=== PATIENT | female | born 1940 | race Caucasian/White ===

== ENCOUNTER 2021-10-04 14:12 | Inpatient (IN) | payer MEDICARE, OTHER ==
[~2021-10-04] VITALS: Ht 165.1 cm; Wt 59.0 kg
[2021-10-04] MEDS ORDERED: IV NORMAL SALINE 1000 ML BAG IV ONE (14:30)
[2021-10-04] MEDS ORDERED: DOCU-141 GT (14:32)
[2021-10-04] MEDS ORDERED: ASCO500C18 GT (14:32)
[2021-10-04] MEDS ORDERED: HYDR-4209 GT (14:32)
[2021-10-04] MEDS ORDERED: COLL30OI TOP (14:32)
[2021-10-04] MEDS ORDERED: LEVE500T20 GT (14:32)
[2021-10-04] MEDS ORDERED: LEVO200T9 GT (14:32)
[2021-10-04] MEDS ORDERED: MULT-594 GT (14:32)
[2021-10-04] MEDS ORDERED: SENN-18 GT (14:32)
[2021-10-04] MEDS ORDERED: FERR325T28 GT (14:32)
[2021-10-04] MEDS ORDERED: MAGN400O6 GT (14:32)
[2021-10-04] MEDS ORDERED: ACET325C7 GT (14:32)
[2021-10-04] MEDS ORDERED: DIATR MEGLU/DIATRIZOATE SODIUM 30 ML BOTTLE GT ONE (14:45)
[2021-10-04] MEDS ORDERED: DIATR MEGLU/DIATRIZOATE SODIUM 30 ML BOTTLE ONE (14:47)
--- NOTE | 2021-10-04 14:49 | NUR ---
PT IS IN ROOM #2B. DR GIBBONS EVALUATED THE PT.
[2021-10-04 14:58] LABS: CARBON DIOXIDE 24 mmol/L (21-32); CHLORIDE 125 mmol/L (98-107); CREATININE 2.3 mg/dL (0.6-1.3); GLUCOSE 129 mg/dL (74-106); POTASSIUM 3.9 mmol/L (3.5-5.1)
[2021-10-04 15:00] LABS: UREA NITROGEN, BLOOD 125 mg/dL (7-18)
[2021-10-04 15:04] LABS: ALANINE AMINOTRANSFERASE 141 U/L (14-59); ALKALINE PHOSPHATASE 105 U/L (50-136); ASPARTATE AMINOTRANSFERASE 64 U/L (15-37); BILIRUBIN,DIRECT 0.1 mg/dL (0.0-0.2); BILIRUBIN,TOTAL 0.4 mg/dL (0.2-1.0); LIPASE 737 U/L (73-393); TOTAL PROTEIN, SERUM 8.5 g/dL (6.4-8.2)
[2021-10-04 15:45] LABS: HEMATOCRIT 36.8 % (31.2-41.9); MEAN CORPUSCULAR HEMOGLOBIN 26.1 uug (24.7-32.8); MEAN CORPUSCULAR VOLUME 87.3 fL (75.5-95.3); PLATELET COUNT (AUTO) 207 K/uL (179-408)
--- NOTE | 2021-10-04 16:06 | NUR ---
REPORT WAS GIVEN TO INTEGRATION DIRECTOR. PT WAS TRANSFERED TO ROOM #314.
[2021-10-04] MEDS ORDERED: IV NORMAL SALINE 500 ML IV ONE (16:30)
[2021-10-04] MEDS ORDERED: REMEDY ESSENTIAL ZINC PASTE 113 GM TP PRN (16:30)
[2021-10-04 16:31] VITALS: BP 124/67
--- NOTE | 2021-10-04 16:45 | NUR ---
patient admitted to telemetry, patient is awake nonverbal. Patient with eyes open. respirations even and non-labored 95% on r.a. gt in place and patent, s/p gt replacement in ER, stoma noted with redness. Colostomy noted to left side of abd, stoma appears pink. bowel sounds present in all 4 quadrant, abdomen soft and non-tender. patient is incontinent and uses diaper, no episode of urination at this time. patient is total care patient, bed bound, bilateral lower extremity are contracted. Upon assessment patient with no facial grimacing of pain or discomfort. on body assessment patient is noted with left breast mass with some purple/red discolorations, redness to gt stoma site, old healed scab to right hip, scratches to left knee, right second toe wound and missing right big toe. patient cleaned and repositioned at this time. side rails up x2 bilateral, call light within reach, unable to orient to room due to cognitive impairment.
[2021-10-04 17:21] LABS: BAND % (MANUAL) 3 % (0-10); EOSINOPHILS % (MANUAL) 3 % (0-8); LYMPHOCYTES % (MANUAL) 26 % (20-40); MONOCYTES % (MANUAL) 8 % (2-10); NEUTROPHILS % (MANUAL) 60 % (42-75)
[2021-10-04] MEDS: NEPRO 1000 ML GT PRN (18:14)
[2021-10-04] MEDS: IV D5W 1000ML 1,000 ML IV PRN (18:14)
[2021-10-04] MEDS: DOCUSATE SODIUM 100 MG/10 ML LIQUID UDC GT SCH (20:04)
[2021-10-04] MEDS: HEPARIN SODIUM,PORCINE 5,000 UNITS/ML VIAL SQ SCH (20:07)
[2021-10-04 20:13] VITALS: BP 150/76
[2021-10-05 01:23] VITALS: BP 116/58
[2021-10-05 04:31] VITALS: BP 134/62
--- NOTE | 2021-10-05 06:09 | NUR ---
Pt slept intermittently. Alert to self. No distress noted. IV site intact. GT intact, no residual. Safety precautions in place. Will endorse to day shift.
[2021-10-05 06:43] LABS: HEMATOCRIT 30.2 % (31.2-41.9); MEAN CORPUSCULAR HEMOGLOBIN 26.8 uug (24.7-32.8); MEAN CORPUSCULAR VOLUME 85.8 fL (75.5-95.3); PLATELET COUNT (AUTO) 161 K/uL (179-408)
[2021-10-05] MEDS: IV D5W 1000ML 1,000 ML IV PRN ×2 (06:56→20:10)
[2021-10-05] MEDS: LEVOTHYROXINE SODIUM 100 MCG TABLET PO SCH (07:27)
[2021-10-05] MEDS: LEVOTHYROXINE SODIUM 125 MCG TABLET PO SCH (07:27)
[2021-10-05 07:39] LABS: ALANINE AMINOTRANSFERASE 113 U/L (14-59); ALKALINE PHOSPHATASE 94 U/L (50-136); ASPARTATE AMINOTRANSFERASE 48 U/L (15-37); BILIRUBIN,TOTAL 0.3 mg/dL (0.2-1.0); CARBON DIOXIDE 26 mmol/L (21-32); CREATININE 2.1 mg/dL (0.6-1.3); GLUCOSE 147 mg/dL (74-106); LIPASE 751 U/L (73-393); MAGNESIUM 2.8 mg/dL (1.8-2.4); PHOSPHOROUS 3.9 mg/dL (2.5-4.9); POTASSIUM 3.7 mmol/L (3.5-5.1); TOTAL PROTEIN, SERUM 7.4 g/dL (6.4-8.2)
[2021-10-05 07:40] LABS: THYROID STIMULATING HORMONE 5.672 mIU/mL (0.358-3.740)
[2021-10-05 08:19] LABS: CHLORIDE 126 mmol/L (98-107)
[2021-10-05 08:21] LABS: UREA NITROGEN, BLOOD 117 mg/dL (7-18)
--- NOTE | 2021-10-05 08:39 | NUR ---
Critical Lab Values: Sodium: 162, BUN: 117. Claude Flynn NP notified.
[2021-10-05] MEDS: DOCUSATE SODIUM 100 MG/10 ML LIQUID UDC GT SCH ×2 (08:47→20:10)
[2021-10-05] MEDS: ASCORBIC ACID 500 MG TABLET GT SCH (08:47)
[2021-10-05] MEDS: FERROUS SULFATE 300 MG/5 ML LIQUID UDC GT SCH (08:47)
[2021-10-05] MEDS: PANTOPRAZOLE ORAL SUSPENSION 40 MG SUSPDR.PKT GT SCH (08:47)
[2021-10-05] MEDS: SENNOSIDES 1 TABLET GT SCH (08:48)
[2021-10-05] MEDS: MULTIVITAMINS,THERAPEUTIC TABLET GT SCH (08:48)
[2021-10-05] MEDS: levETIRAcetam 500 MG TABLET GT SCH ×2 (08:48→16:04)
[2021-10-05] MEDS: THERAHONEY GEL 1.5 OZ TUBE TOP SCH (08:49)
[2021-10-05] MEDS: HEPARIN SODIUM,PORCINE 5,000 UNITS/ML VIAL SQ SCH ×2 (08:57→20:11)
[2021-10-05] MEDS ORDERED: LEVOTHYROXINE SODIUM 200 MCG TABLET GT SCH (09:00)
[2021-10-05] MEDS ORDERED: Medication Not On Formulary EA (Ascorbic Acid (Vitamin C) 500 MG) GT SCH (09:00)
[2021-10-05] MEDS ORDERED: Medication Not On Formulary EA (Multivitamins (Multivitamin) 1 EACH) GT SCH (09:00)
[2021-10-05] MEDS ORDERED: COLLAGENASE OINT 30 GM TUBE TOP SCH (09:00)
--- NOTE | 2021-10-05 09:09 | NUR ---
Patient seen by PT and states patient needs total assistance.
--- NOTE | 2021-10-05 10:55 | NUR ---
G-Tube feeding resumed at 1030. Next scheduled stop to feeding at 0630 10/06/2021. Will endorse information to PM nurse.
--- NOTE | 2021-10-05 11:17 | NUR ---
WOUND CARE CONSULT: PT PRESENTS WITH SCARRING TO RT HIP, SACRUM, RT ANKLE AND OPEN AREAS TO RT 2ND AND 3RD TOES, PRESENT ON ADMISSION. DPM CONSULT CALLED TO DR OAKLEY. PT NOTED TO HAVE LARGE LESION TO LEFT BREAST, NO DRAINAGE NOTED. RECOMMENDATIONS MADE FOR SKIN PROTECTION. DISCUSSED WITH NURSING STAFF. PT IS INCONTINENT AND NOTED TO HAVE LOWER EXTREMITY CONTRACTURES. MD IN AGREEMENT WITH PLAN OF CARE. Addendum: 10/05/21 at 1121 by LYDIA ZURITA RN COLOSTOMY ALSO NOTED WITH SMALL AMOUNT OF HARD STOOL.
[2021-10-05 11:59] VITALS: BP 106/52
--- NOTE | 2021-10-05 16:18 | NUR ---
Patient's BP dropped to 97/50. Claude Flynn RELIGIOUS EDUCATION TEACHER notified.
[2021-10-05 16:24] VITALS: BP 96/50
[2021-10-05 20:20] VITALS: BP 123/63
[2021-10-05] MEDS: HYDROCODONE/APAP 5-325MG TABLET GT PRN (23:43)
[2021-10-06] MEDS: NEPRO 1000 ML GT PRN (03:18)
[2021-10-06 04:47] VITALS: BP 123/74
--- NOTE | 2021-10-06 05:57 | NUR ---
Pt slept throughout the night. Purewick in place. IV site intact. GT intact. Safety protocols kept in place, will endorse to day shift.
[2021-10-06] MEDS: LEVOTHYROXINE SODIUM 125 MCG TABLET PO SCH (06:32)
[2021-10-06] MEDS: LEVOTHYROXINE SODIUM 100 MCG TABLET PO SCH (06:32)
[2021-10-06 07:15] LABS: HEMATOCRIT 27.3 % (31.2-41.9); MEAN CORPUSCULAR HEMOGLOBIN 26.5 uug (24.7-32.8); MEAN CORPUSCULAR VOLUME 86.7 fL (75.5-95.3); PLATELET COUNT (AUTO) 135 K/uL (179-408)
[2021-10-06 07:36] LABS: ALANINE AMINOTRANSFERASE 73 U/L (14-59); ALKALINE PHOSPHATASE 89 U/L (50-136); ASPARTATE AMINOTRANSFERASE 53 U/L (15-37); BILIRUBIN,DIRECT 0.1 mg/dL (0.0-0.2); BILIRUBIN,TOTAL 0.2 mg/dL (0.2-1.0); CARBON DIOXIDE 25 mmol/L (21-32); CHLORIDE 119 mmol/L (98-107); CHOLESTEROL 130 mg/dL (<200); CREATININE 1.9 mg/dL (0.6-1.3); GLUCOSE 140 mg/dL (74-106); HDL CHOLESTEROL 33 mg/dL (40-60); MAGNESIUM 2.6 mg/dL (1.8-2.4); PHOSPHOROUS 3.2 mg/dL (2.5-4.9); POTASSIUM 3.4 mmol/L (3.5-5.1); TOTAL PROTEIN, SERUM 6.8 g/dL (6.4-8.2); TRIGLYCERIDES 243 MG/DL (30-150)
[2021-10-06 07:48] LABS: *BILIRUBIN,URIN NEGATIVE (NEGATIVE); *BLOOD, URINE 1+ (NEGATIVE); *CLARITY,URINE CLEAR (CLEAR); *COLOR,URINE YELLOW (YELLOW); *KETONES,URINE NEGATIVE (NEGATIVE); *UROBILINOGEN,URINE 0.2 E.U./dl (NORMAL); LEUKOCYTE ESTERASE ,URINE TRACE (NEGATIVE); NITRITE, URINE POSITIVE (NEGATIVE); UGLUCOSE NEGATIVE (NEGATIVE)
[2021-10-06 08:08] LABS: UREA NITROGEN, BLOOD 90 mg/dL (7-18)
[2021-10-06] MEDS: DOCUSATE SODIUM 100 MG/10 ML LIQUID UDC GT SCH ×2 (08:40→20:55)
[2021-10-06] MEDS: PANTOPRAZOLE ORAL SUSPENSION 40 MG SUSPDR.PKT GT SCH (08:40)
[2021-10-06] MEDS: MULTIVITAMINS,THERAPEUTIC TABLET GT SCH (08:40)
[2021-10-06] MEDS: ASCORBIC ACID 500 MG TABLET GT SCH (08:40)
[2021-10-06] MEDS: SENNOSIDES 1 TABLET GT SCH (08:40)
[2021-10-06] MEDS: FERROUS SULFATE 300 MG/5 ML LIQUID UDC GT SCH (08:40)
[2021-10-06] MEDS: levETIRAcetam 500 MG TABLET GT SCH ×2 (08:40→16:37)
[2021-10-06] MEDS: THERAHONEY GEL 1.5 OZ TUBE TOP SCH (08:41)
[2021-10-06] MEDS: HEPARIN SODIUM,PORCINE 5,000 UNITS/ML VIAL SQ SCH ×2 (08:51→21:05)
[2021-10-06] MEDS: IV D5W 1000ML 1,000 ML IV PRN (09:23)
[2021-10-06] MEDS ORDERED: POTASSIUM CHLORIDE 20 MEQ POWDER PACKET GT ONE (10:00)
[2021-10-06] MEDS ORDERED: CEFTRIAXONE 1 G in IV DEXTROSE 5% 50 ML IV SCH (10:00)
--- NOTE | 2021-10-06 10:12 | NUR ---
G-Tube feeding resumed at 1000. Will endorse to PM nurse to end feeding at 0600 10/07/21
[2021-10-06 11:07] VITALS: BP 144/70
[2021-10-06 12:38] LABS: BACTERIA,URINE FEW /HPF (NONE SEEN); SQUAMOUS EPITHELIAL CELL,UR FEW /HPF (NONE SEEN); WBC,URINE 0-3 /HPF (0-3)
[2021-10-06] MEDS: ACETAMINOPHEN 650 MG/20.3 ML LIQUID UDC GT PRN ×2 (14:27→21:04)
--- NOTE | 2021-10-06 14:48 | NUR ---
Spoke to Claude Flynn NP regarding patient's colostomy bag. Hardened stool around stoma site. Attempted to maneuver and move hardened stool. Miralax ordered per Claude Flynn NP.
--- NOTE | 2021-10-06 14:50 | NUR ---
Also notified Claude Flynn NP about patient's facing becoming red. No fever noted. Patient in no distress or discomfort. Will continue to monitor patient.
[2021-10-06] MEDS ORDERED: MIRALAX 17 GM POWD.PACK PO ONE (15:00)
[2021-10-06 15:20] VITALS: BP 130/60
[2021-10-06] MEDS: NYSTATIN SUSPENSION 5 ML LIQUID UDC PO SCH ×2 (16:37→20:55)
--- NOTE | 2021-10-06 18:31 | NUR ---
Patient received care well today. Colostomy bag changed. G-tube dressing changed. IV site patent and intact. Bed left in lowest position with call light within reach. Patient's feeding scheduled to stop at 0600 10/07/21. Will endorse information to PM nurse. Comfort measures provided.
[2021-10-06 20:12] VITALS: BP 110/59
--- NOTE | 2021-10-06 21:24 | NUR ---
Patient asleep but arousable, hob elevated, no sob no chest pain noted, patient GTF held at this time, residual of 200cc, with greenish color residual, denies pain at this time, colostomy bag with medium brown color feces, turned and reposition, continue to monitor.
--- NOTE | 2021-10-07 00:02 | NUR ---
Patient face, hands and body has redness, and noted patient itching, notify Claude Flynn, with order.
[2021-10-07] MEDS ORDERED: diphenhydrAMINE 50 MG/1 ML VIAL IV PRN (00:15)
[2021-10-07] MEDS ORDERED: methylPREDNISolone SOD SUCC 125 MG/2 ML VIAL IV ONE (00:15)
[2021-10-07 04:15] VITALS: BP 118/40
[2021-10-07] MEDS: LEVOTHYROXINE SODIUM 100 MCG TABLET PO SCH (07:00)
[2021-10-07] MEDS: LEVOTHYROXINE SODIUM 125 MCG TABLET PO SCH (07:01)
[2021-10-07 07:02] LABS: HEMATOCRIT 27.6 % (31.2-41.9); MEAN CORPUSCULAR HEMOGLOBIN 26.5 uug (24.7-32.8); MEAN CORPUSCULAR VOLUME 85.8 fL (75.5-95.3); PLATELET COUNT (AUTO) 134 K/uL (179-408)
[2021-10-07 07:19] LABS: CARBON DIOXIDE 23 mmol/L (21-32); CHLORIDE 112 mmol/L (98-107); CREATININE 1.9 mg/dL (0.6-1.3); GLUCOSE 209 mg/dL (74-106); POTASSIUM 4.6 mmol/L (3.5-5.1); UREA NITROGEN, BLOOD 78 mg/dL (7-18)
[2021-10-07 07:26] LABS: MAGNESIUM 2.4 mg/dL (1.8-2.4); PHOSPHOROUS 3.5 mg/dL (2.5-4.9)
[2021-10-07] MEDS: NYSTATIN SUSPENSION 5 ML LIQUID UDC PO SCH ×4 (08:48→20:48)
[2021-10-07] MEDS: FERROUS SULFATE 300 MG/5 ML LIQUID UDC GT SCH (08:48)
[2021-10-07] MEDS: ASCORBIC ACID 500 MG TABLET GT SCH (08:48)
[2021-10-07] MEDS: MULTIVITAMINS,THERAPEUTIC TABLET GT SCH (08:48)
[2021-10-07] MEDS: SENNOSIDES 1 TABLET GT SCH (08:48)
[2021-10-07] MEDS: DOCUSATE SODIUM 100 MG/10 ML LIQUID UDC GT SCH ×2 (08:48→20:48)
[2021-10-07] MEDS: levETIRAcetam 500 MG TABLET GT SCH ×2 (08:48→16:53)
[2021-10-07] MEDS: PANTOPRAZOLE ORAL SUSPENSION 40 MG SUSPDR.PKT GT SCH (08:48)
[2021-10-07] MEDS: THERAHONEY GEL 1.5 OZ TUBE TOP SCH (08:49)
[2021-10-07] MEDS: HEPARIN SODIUM,PORCINE 5,000 UNITS/ML VIAL SQ SCH ×2 (08:59→20:48)
--- NOTE | 2021-10-07 10:30 | NUR ---
PATIENT NOTED TO BE AWAKE AND RESPONDING TO QUESTIONS ASKED SHE IS SOMEWHAT DISORIENTED ALL NEEDS ANTICIPATED AND SATISFIED GT FEEDINGS IN PROGRESS ORDERED AND TOLERATING WELLIVF ORDERED RIGHT LEG NOTED VERY CONTRACTED REPOSITIONED WITH PILLOWS MADE COMFORTABLE WILL CONTINUE TO OBSERVE.
--- NOTE | 2021-10-07 11:12 | NUR ---
PER REPORT PATIENT HAD RASHES WITH ROCEPHIN LAST NOC MD AWARE AND ROCEPHIN ADDED PATIENTS ALLERGY .
[2021-10-07 11:17] VITALS: BP 134/42
[2021-10-07] MEDS: levoFLOXacin 750MG/D5W 750 MG in PREMIXED 1 EACH IV SCH (12:31)
[2021-10-07 15:17] VITALS: BP 110/54
[2021-10-07] MEDS: IV D5W 1000ML 1,000 ML IV PRN (16:27)
--- NOTE | 2021-10-07 18:00 | NUR ---
TOLERATED IV LEVAQUIN ORDERED WITH NO ADVERSE OR ALLERGIC REACTIONS AT THIS TIME GT FEEDINGS IN PROGRESS NO RESIDUAL PILLOWS USED FOR REPOSITIONING BETWEEN LEGS RIGHT VERY CONTRACTED HOB UP MADE COMFORTABLE WILL CONTINUE TO OBSERVE.
[2021-10-07 20:35] VITALS: BP 104/51
[2021-10-08] MEDS: NEPRO 1000 ML GT PRN (00:52)
[2021-10-08 04:43] VITALS: BP 114/58
[2021-10-08] MEDS: LEVOTHYROXINE SODIUM 125 MCG TABLET PO SCH (06:03)
[2021-10-08] MEDS: LEVOTHYROXINE SODIUM 100 MCG TABLET PO SCH (06:03)
[2021-10-08] MEDS: IV D5W 1000ML 1,000 ML IV PRN (06:09)
[2021-10-08 06:34] LABS: HEMATOCRIT 22.3 % (31.2-41.9); MEAN CORPUSCULAR HEMOGLOBIN 27.4 uug (24.7-32.8); MEAN CORPUSCULAR VOLUME 83.8 fL (75.5-95.3); PLATELET COUNT (AUTO) 120 K/uL (179-408)
[2021-10-08 06:44] LABS: CARBON DIOXIDE 24 mmol/L (21-32); CHLORIDE 107 mmol/L (98-107); CREATININE 1.6 mg/dL (0.6-1.3); GLUCOSE 114 mg/dL (74-106); MAGNESIUM 2.1 mg/dL (1.8-2.4); PHOSPHOROUS 3.4 mg/dL (2.5-4.9); POTASSIUM 3.7 mmol/L (3.5-5.1); UREA NITROGEN, BLOOD 66 mg/dL (7-18)
--- NOTE | 2021-10-08 08:00 | NUR ---
RECEIVED PATIENT IN BED AWAKE ALERT AND VERBALLY RESPONDED WHEN SPOKEN TO BUT ALL NEEDS MUST BE ANTICIPATED AND SATISFIED REQUIRES MAX ASSIST FOR ALL ADL TURNED AND REPOSITIONED Q2H FOR COMFORT.GT FEEDINGS OFF AT THIS TIME PER ORDER NO REGURGITATION OR EMESIS AT THIS TIME.MADE COMFORTABLE WILL CONTINUE TO OBSERVE.
[2021-10-08] MEDS: FERROUS SULFATE 300 MG/5 ML LIQUID UDC GT SCH (08:37)
[2021-10-08] MEDS: ASCORBIC ACID 500 MG TABLET GT SCH (08:37)
[2021-10-08] MEDS: levETIRAcetam 500 MG TABLET GT SCH ×2 (08:37→16:16)
[2021-10-08] MEDS: MULTIVITAMINS,THERAPEUTIC TABLET GT SCH (08:37)
[2021-10-08] MEDS: PANTOPRAZOLE ORAL SUSPENSION 40 MG SUSPDR.PKT GT SCH (08:37)
[2021-10-08] MEDS: DOCUSATE SODIUM 100 MG/10 ML LIQUID UDC GT SCH ×2 (08:37→20:14)
[2021-10-08] MEDS: SENNOSIDES 1 TABLET GT SCH (08:37)
[2021-10-08] MEDS: NYSTATIN SUSPENSION 5 ML LIQUID UDC PO SCH ×4 (08:37→20:14)
[2021-10-08] MEDS: THERAHONEY GEL 1.5 OZ TUBE TOP SCH (08:38)
[2021-10-08] MEDS: HEPARIN SODIUM,PORCINE 5,000 UNITS/ML VIAL SQ SCH ×2 (08:40→20:19)
[2021-10-08 09:41] LABS: IRON, SERUM 38 ug/dL (50-175)
[2021-10-08 11:35] VITALS: BP 123/61
--- NOTE | 2021-10-08 12:20 | NUR ---
ORDER TO DISCONTINUE IV FLUID RECEIVED AND CARRIED OUT. CONTINUE ON GT FEEDINGS ORDERED WITH NO REGURGITATION OR EMESIS TURNED AND REPOSITIONED Q2H MADE COMFORTABLE WILL CONTINUE TO OBSERVE.
[2021-10-08 16:10] VITALS: BP 116/51
--- NOTE | 2021-10-08 17:27 | NUR ---
STOOL OBTAINED FROM HER COLOSTOMY BAG AND SENT TO THE LAB ORDERED
[2021-10-08 19:09] LABS: HEMATOCRIT 23.5 % (31.2-41.9)
--- NOTE | 2021-10-08 19:30 | NUR ---
Received pt awake, alert and orientedx1. Pt in no acute distress. Iv intact. Safety and comfort provided. Gtube intact . Will continue to monitor.
[2021-10-08 19:54] LABS: *OCCULT BLOOD STOOL NEGATIVE (NEGATIVE)
[2021-10-08 20:18] VITALS: BP 122/55
[2021-10-08] MEDS: ACETAMINOPHEN 650 MG/20.3 ML LIQUID UDC GT PRN (20:21)
[2021-10-08] MEDS: LORAZEPAM 2 MG/1 ML VIAL IV PRN (22:37)
--- NOTE | 2021-10-08 23:37 | NUR ---
at 2237hAtivan 1mg prn given to pt for restlessness and pt yelling. After an hour pt is calmer. Ativan effective on pt. Pt stable and repositioned. Will continue to monitor.
[2021-10-09 04:18] VITALS: BP 126/56
[2021-10-09] MEDS: LORAZEPAM 2 MG/1 ML VIAL IV PRN (05:47)
[2021-10-09] MEDS: LEVOTHYROXINE SODIUM 125 MCG TABLET PO SCH (06:14)
[2021-10-09] MEDS: LEVOTHYROXINE SODIUM 100 MCG TABLET PO SCH (06:14)
[2021-10-09 06:52] LABS: HEMATOCRIT 24.6 % (31.2-41.9); MEAN CORPUSCULAR HEMOGLOBIN 26.9 uug (24.7-32.8); PLATELET COUNT (AUTO) 119 K/uL (179-408)
--- NOTE | 2021-10-09 06:52 | NUR ---
Pt slept comfortably. Pt turned and repositioned. Dressing changed. Gtube intact and tolerating feeding well. Pt restless and yelling and was given Ativan 1mg prn at 0547H . Pt tolerated it well. Ativan effective after an hour pt is more calmer. Prescribed medication given and pt tolerated it well. Vital signs within normal limit. Safety and comfort provided. Will endorse to incoming nurse.
[2021-10-09 07:15] LABS: ALANINE AMINOTRANSFERASE 65 U/L (14-59); ALKALINE PHOSPHATASE 113 U/L (50-136); ASPARTATE AMINOTRANSFERASE 66 U/L (15-37); BILIRUBIN,DIRECT 0.1 mg/dL (0.0-0.2); BILIRUBIN,TOTAL 0.2 mg/dL (0.2-1.0); CARBON DIOXIDE 24 mmol/L (21-32); CHLORIDE 106 mmol/L (98-107); CREATININE 1.5 mg/dL (0.6-1.3); GLUCOSE 124 mg/dL (74-106); MAGNESIUM 2.3 mg/dL (1.8-2.4); PHOSPHOROUS 3.7 mg/dL (2.5-4.9); POTASSIUM 3.7 mmol/L (3.5-5.1); TOTAL PROTEIN, SERUM 6.8 g/dL (6.4-8.2); UREA NITROGEN, BLOOD 58 mg/dL (7-18)
--- NOTE | 2021-10-09 07:30 | NUR ---
PATIENT IS IN BED WITH EYES CLOSED BUT IS EASILY AROUSABLE ON ROUNDS ALERT WHEN AWAKE VERBALLY RESPONDS WHEN SPOKEN TO BUT IS UNABLE TO MAKE NEEDS KNOWN ALL NEEDS MUST BE ANTICIPATED AND SATISFIED ON ROOM AIR WITH NO SOB TURNED AND REPOSITIONED Q2H WITH RIGHT LOWER EXT SEVERELY CONTRACTED REPOSITIONED WITH PILLOWS GT FEEDINGS OFF PER SCHEDULE MADE COMFORTABLE AND WILL CONTINUE TO OBSERVE.
[2021-10-09] MEDS: SENNOSIDES 1 TABLET GT SCH (08:32)
[2021-10-09] MEDS: ASCORBIC ACID 500 MG TABLET GT SCH (08:32)
[2021-10-09] MEDS: levETIRAcetam 500 MG TABLET GT SCH ×2 (08:32→16:23)
[2021-10-09] MEDS: MULTIVITAMINS,THERAPEUTIC TABLET GT SCH (08:32)
[2021-10-09] MEDS: DOCUSATE SODIUM 100 MG/10 ML LIQUID UDC GT SCH ×2 (08:32→20:12)
[2021-10-09] MEDS: PANTOPRAZOLE ORAL SUSPENSION 40 MG SUSPDR.PKT GT SCH (08:32)
[2021-10-09] MEDS: NYSTATIN SUSPENSION 5 ML LIQUID UDC PO SCH ×4 (08:32→20:12)
[2021-10-09] MEDS: FERROUS SULFATE 300 MG/5 ML LIQUID UDC GT SCH (08:33)
[2021-10-09] MEDS: HEPARIN SODIUM,PORCINE 5,000 UNITS/ML VIAL SQ SCH ×2 (08:33→20:13)
[2021-10-09] MEDS: THERAHONEY GEL 1.5 OZ TUBE TOP SCH (08:35)
[2021-10-09 11:56] VITALS: BP 112/68
[2021-10-09] MEDS: levoFLOXacin 750MG/D5W 750 MG in PREMIXED 1 EACH IV SCH (12:11)
--- NOTE | 2021-10-09 15:21 | NUR ---
REMAIN ON GT FEEDINGS ORDERED WITH NO GASTRIC RESIDUAL AT THIS TIME IV ATB INFUSED ORDERED WITH NO REGURGITATION OR EMESIS AT THIS TIME REPOSITIONED FOR COMFORT MADE COMFORTABLE WILL OBSERVE.
[2021-10-09 16:22] VITALS: BP 123/52
[2021-10-09] MEDS: HYDROCODONE/APAP 5-325MG TABLET GT PRN (17:40)
--- NOTE | 2021-10-09 19:30 | NUR ---
Received pt awake. Pt in no acute distress. Iv intact.Pt on Gtube feeding and tolerating well. Pt on room air. Pt on purewick. Safety and comfort provided. Will continue to monitor.
[2021-10-09 20:00] VITALS: BP 122/56
--- NOTE | 2021-10-09 20:30 | NUR ---
Pt had one episode of vomiting. Pt suctioned and place the head of the bed on 90' . Pt in no acute distress. Vital signs within normal limit. Will continue to monitor.
[2021-10-09] MEDS: ONDANSETRON 4 MG/2 ML VIAL IV PRN (21:19)
--- NOTE | 2021-10-09 21:19 | NUR ---
Zofran 4mg prn given to pt for vomiting. Pt tolerated it well. Pt stated she felt better. Hold the the gtube feeding in the meantime. Will continue to monitor.
--- NOTE | 2021-10-10 | NUR ---
Check residual of the gtube. No residual noted. Continue gtube feeding. Pt turned and repositioned. Will continue to monitor.
[2021-10-10] MEDS: ONDANSETRON 4 MG/2 ML VIAL IV PRN (03:36)
--- NOTE | 2021-10-10 03:42 | NUR ---
at 0336H Zofran 4mg prn given to pt for vomiting. Pt in no acute distress, Vital signs within normal limit. Held gtube feeding. No residual noted. Will continue to monitor.
[2021-10-10 04:00] VITALS: BP 129/93
[2021-10-10] MEDS: LEVOTHYROXINE SODIUM 100 MCG TABLET PO SCH (06:06)
[2021-10-10] MEDS: LEVOTHYROXINE SODIUM 125 MCG TABLET PO SCH (06:06)
--- NOTE | 2021-10-10 06:23 | NUR ---
Pt slept intermittently. Pt in no acute distress. Pt on room air. Iv intact.Gtube held because pt vomitted. Charge nurse aware. Prescribed medication given and pt tolerated it well. Pt turned and repositioned. Dressing changed. Safety and comfort provided. All needs are met. Vital signs within normal limit. Will endorse to incoming nurse for continuity of care.
[2021-10-10 07:13] LABS: HEMATOCRIT 24.3 % (31.2-41.9); MEAN CORPUSCULAR HEMOGLOBIN 27.4 uug (24.7-32.8); PLATELET COUNT (AUTO) 135 K/uL (179-408)
[2021-10-10 07:28] LABS: CARBON DIOXIDE 26 mmol/L (21-32); CHLORIDE 107 mmol/L (98-107); CREATININE 1.5 mg/dL (0.6-1.3); GLUCOSE 117 mg/dL (74-106); MAGNESIUM 2.3 mg/dL (1.8-2.4); PHOSPHOROUS 4.1 mg/dL (2.5-4.9); POTASSIUM 4.2 mmol/L (3.5-5.1); UREA NITROGEN, BLOOD 50 mg/dL (7-18)
--- NOTE | 2021-10-10 07:45 | NUR ---
RECEIVED PATIENT IN BED WITH EYES CLOSED WITH GT STOPPED PER HER SCHEDULE NO GASTRIC RESIDUAL AND NO EMESIS NOTED AT THIS TIME ON ROOM AIR WITH NO SHORTNESS OF BREATH TURNED AND REPOSITIONED Q2H GT/COLOSTOMY IS INTACT MADE COMFORTABLE WILL CONTINUE TO OBSERVE.
[2021-10-10] MEDS: PANTOPRAZOLE ORAL SUSPENSION 40 MG SUSPDR.PKT GT SCH (08:18)
[2021-10-10] MEDS: SENNOSIDES 1 TABLET GT SCH (08:18)
[2021-10-10] MEDS: MULTIVITAMINS,THERAPEUTIC TABLET GT SCH (08:18)
[2021-10-10] MEDS: levETIRAcetam 500 MG TABLET GT SCH ×2 (08:18→16:05)
[2021-10-10] MEDS: ASCORBIC ACID 500 MG TABLET GT SCH (08:18)
[2021-10-10] MEDS: FERROUS SULFATE 300 MG/5 ML LIQUID UDC GT SCH (08:19)
[2021-10-10] MEDS: NYSTATIN SUSPENSION 5 ML LIQUID UDC PO SCH ×3 (08:19→16:05)
[2021-10-10] MEDS: DOCUSATE SODIUM 100 MG/10 ML LIQUID UDC GT SCH (08:19)
[2021-10-10] MEDS: HEPARIN SODIUM,PORCINE 5,000 UNITS/ML VIAL SQ SCH (08:21)
[2021-10-10] MEDS: THERAHONEY GEL 1.5 OZ TUBE TOP SCH (08:21)
[2021-10-10] MEDS ORDERED: RXGEN XX (11:42)
[2021-10-10] MEDS ORDERED: ASCO500T21 GT (11:42)
[2021-10-10] MEDS ORDERED: LEVO125T8 PO (11:42)
[2021-10-10] MEDS ORDERED: DOCU50LI GT (11:42)
[2021-10-10] MEDS ORDERED: NYST5ORA PO (11:42)
[2021-10-10] MEDS ORDERED: FERR300L GT (11:42)
[2021-10-10] MEDS ORDERED: [UNRECOGNIZED DRUG - CODE] IV (11:42)
[2021-10-10] MEDS ORDERED: PANT40SU2 GT (11:42)
[2021-10-10] MEDS ORDERED: Nepro GT (11:42)
[2021-10-10 11:53] VITALS: BP 121/46
[2021-10-10] MEDS ORDERED: GENTAMICIN SULFATE INJ 80 MG in IV DEXTROSE 5% 50 ML IV SCH (12:00)
--- NOTE | 2021-10-10 12:44 | NUR ---
D/C PLANNING PENDING MIDLINE INSERTION PATIENT WILL CONTINUE ON IV ATB POST DISCHARGE.7
[2021-10-10] MEDS ORDERED: LIDOCAINE HCL 1% 20 ML VIAL IJ PRN (14:34)
--- NOTE | 2021-10-10 16:00 | NUR ---
MIDLINE INSERTED TO HER RIGHT FOREARM GAUGE 18 AND TOLERATED WELL.
[2021-10-10 16:30] VITALS: BP 128/70
--- NOTE | 2021-10-10 17:00 | NUR ---
CALLED [facility] IN OTHER TO GIVE REPORT LEFT MESSGE ON THE VOICE MAIL NO ONE WAS AVAILABLE TO TAKE REPORT AT THIS TIME.
--- NOTE | 2021-10-10 18:20 | NUR ---
[facility] HERE AND PATIENT DISCHARGED WITH NO PERSONAL BELONGINGS GT INTACT MIDLINE INTACT NOT IN DISTRESS REPORT GIVEN TO THE AMBULANCE DRIVERS AND THEY WILL PASS IT ON TO THE SNF PATIENT TO CONTINUE ON HER ATB FOR 7 MORE DAYS FOR UTI.
== END 2021-10-10 18:20 | DRG 640 ==
LOC: EDSEX 14:12 → ER 14:12 → TELE3 15:56 → MEDSURG3 10-06 08:35
PROVIDERS: ADMIT Nurse Practitioner Family; ATTEND Nurse Practitioner Acute Care
PROC: 0D20XUZ Change Feeding Device in Upper Intestinal Tract, External Approach (ICD-10-PCS; principal; 2021-10-10)
PROC: 05H533Z Insertion of Infusion Device into Right Subclavian Vein, Percutaneous Approach (ICD-10-PCS; 2021-10-10)
PROC: B546ZZA Ultrasonography of Right Subclavian Vein, Guidance (ICD-10-PCS; 2021-10-10)
DX: E87.0 Hyperosmolality and hypernatremia (principal); N17.0 Acute kidney failure with tubular necrosis; B37.0 Candidal stomatitis; E44.1 Mild protein-calorie malnutrition; N39.0 Urinary tract infection, site not specified; Z43.1 Encounter for attention to gastrostomy; E86.0 Dehydration; Z66 Do not resuscitate; E03.9 Hypothyroidism, unspecified; E88.09 Other disorders of plasma-protein metabolism, not elsewhere classified; F03.90 Unspecified dementia, unspecified severity, without behavioral disturbance, psychotic disturbance, mood disturbance, and anxiety; F25.9 Schizoaffective disorder, unspecified; F31.9 Bipolar disorder, unspecified; I12.9 Hypertensive chronic kidney disease with stage 1 through stage 4 chronic kidney disease, or unspecified chronic kidney disease; N18.9 Chronic kidney disease, unspecified; Z93.3 Colostomy status; M20.42 Other hammer toe(s) (acquired), left foot; M20.41 Other hammer toe(s) (acquired), right foot; R13.10 Dysphagia, unspecified; R74.01 Elevation of levels of liver transaminase levels; M86.9 Osteomyelitis, unspecified; I73.9 Peripheral vascular disease, unspecified; B96.5 Pseudomonas (aeruginosa) (mallei) (pseudomallei) as the cause of diseases classified elsewhere; Z68.21 Body mass index [BMI] 21.0-21.9, adult; C50.912 Malignant neoplasm of unspecified site of left female breast; Z20.822 Contact with and (suspected) exposure to COVID-19; L97.519 Non-pressure chronic ulcer of other part of right foot with unspecified severity
CPT/HCPCS: 36415; 70030-TC; 71045; 73630; 74018; 82747; 83550; 83690; 83735; 84100; 84443; 85014; 85018; 85025; 87077; 87086; 93005; 97161; A4663; A6209; G0378; J0696; J1200; J1580; J1644; J1956; J2060; J2405; J2930; J3490; J7030; J7040; J7060; J7070; Q9963

== ENCOUNTER 2021-12-05 01:46 | Inpatient (IN) | payer MEDICARE, OTHER ==
[~2021-12-05] VITALS: Ht 167.6 cm; Wt 63.5 kg
[~2021-12-05 01:46] MED LIST: ACET325C7 GT; ASCO500C18 GT; ASCO500T21 GT; COLL30OI TOP; DOCU-141 GT; DOCU50LI GT; FERR300L GT; FERR325T28 GT; HYDR-4209 GT; LEVE500T20 GT; LEVO125T8 PO; LEVO200T9 GT; MAGN400O6 GT; MULT-594 GT; NYST5ORA PO; Nepro GT; PANT40SU2 GT; RXGEN XX; SENN-18 GT; [UNRECOGNIZED DRUG - CODE] IV
--- NOTE | 2021-12-05 02:00 | NUR ---
Pt bib private amb for a work up. Pt is an elderly Hebrew Lady with an old lt facial droop, lt breat large rock wtih nipple deformity s/p breast CA, Rt breast mastectomy, severely contracted in the Rt LE, appears to have a hunched back, but is pt is contracted into partial pos. Pt aphasic and does not respond to both Luxembourgish and Farsi. When asked if she speaks Farsi, she nods her head but then does not answer any other questions in farsi. EDMD states that pt is DNR and is still suffering from CA. Pt brought straight back to room 2A and placed on gurney by shed workers supervisor. I personally placed her on the bedside monitor and got initial VS. Initial VS stable. SBP in the 110s, 94%RA, 16rpm, 98.8 oral. No s/sx of pain, sob, n/v, discomfort or distress.
[2021-12-05] MEDS ORDERED: ACETAMINOPHEN 325 MG TABLET PO PRN (02:45)
[2021-12-05] MEDS ORDERED: ONDANSETRON 4 MG/2 ML VIAL IV PRN (02:45)
[2021-12-05 02:50] LABS: HEMATOCRIT 23.7 % (31.2-41.9); MEAN CORPUSCULAR HEMOGLOBIN 26.4 uug (24.7-32.8); PLATELET COUNT (AUTO) 261 K/uL (179-408)
[2021-12-05 02:58] LABS: CARBON DIOXIDE 31 mmol/L (21-32); CHLORIDE 94 mmol/L (98-107); CREATININE 2.9 mg/dL (0.6-1.3); GLUCOSE 104 mg/dL (74-106); POTASSIUM 3.3 mmol/L (3.5-5.1)
--- NOTE | 2021-12-05 03:00 | NUR ---
Tried to start an IV on pt x4. Was unsuccessful even though pt has good vains. Got blood return on each attempt but was unable to advance cath or to flush line. handed it off to insulation cupola charger Adrian to insert IV cath.
[2021-12-05 03:03] LABS: UREA NITROGEN, BLOOD 143 mg/dL (7-18)
[2021-12-05 03:06] LABS: ALANINE AMINOTRANSFERASE 26 U/L (14-59); ALKALINE PHOSPHATASE 143 U/L (50-136); ASPARTATE AMINOTRANSFERASE 35 U/L (15-37); BILIRUBIN,DIRECT 0.1 mg/dL (0.0-0.2); BILIRUBIN,TOTAL 0.2 mg/dL (0.2-1.0); TOTAL PROTEIN, SERUM 7.8 g/dL (6.4-8.2)
[2021-12-05 03:18] LABS: LIPASE 2804 U/L (73-393)
[2021-12-05] MEDS ORDERED: LEVE500S9 GT (03:37)
[2021-12-05] MEDS ORDERED: PANT40TA49 GT (03:37)
[2021-12-05] MEDS ORDERED: COLL30OI TOP (03:37)
[2021-12-05] MEDS ORDERED: LEVO125T8 GT (03:37)
[2021-12-05] MEDS ORDERED: FERR220S6 GT (03:37)
[2021-12-05] MEDS ORDERED: IV NS 1000 ML 1,000 ML IV ONE (05:00)
--- NOTE | 2021-12-05 06:20 | NUR ---
US tech at bedside performing US. US completed without difficulty. On US, Kidneys appeared to be in failure. Pt tolerated well.
--- NOTE | 2021-12-05 06:40 | NUR ---
PCXR just completed without incident.
--- NOTE | 2021-12-05 07:40 | NUR ---
Patient brought up to unit by ACQUISITIONS EDITOR. patient is non verbal. She is awake, tracks, makes incoherent sounds. Nods and winks to all questions. Patient has a deformity to her left breast from breast cancer. Per previous medical records, family is chosing not to move forward with treatment. Lungs are clear to auscultation, no respiratory distress. Has a colostomy to the left side of mid abdomen, ostomy bag is draining watery/ brown/black stool. GT site to left upper abd, site is moist with clear/ yellow thick drainage. Cleansed GT site well and split gauze provided and secured. Placement assessed using auscultation, able to irrigate GT well. Left AC IV in place, patent and intact. Infusing NS at 75cc/hr. 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 Dressing changed to right foot. No s/s of discomfort.
[2021-12-05 07:47] LABS: *BILIRUBIN,URIN NEGATIVE (NEGATIVE); *BLOOD, URINE 1+ (NEGATIVE); *CLARITY,URINE CLEAR (CLEAR); *COLOR,URINE YELLOW (YELLOW); *KETONES,URINE NEGATIVE (NEGATIVE); *UROBILINOGEN,URINE 0.2 E.U./dl (NORMAL); LEUKOCYTE ESTERASE ,URINE 1+ (NEGATIVE); NITRITE, URINE NEGATIVE (NEGATIVE); UGLUCOSE NEGATIVE (NEGATIVE)
[2021-12-05 07:55] VITALS: BP 131/71
[2021-12-05 08:36] LABS: BACTERIA,URINE FEW /HPF (NONE SEEN)
[2021-12-05 08:37] LABS: SQUAMOUS EPITHELIAL CELL,UR MODERATE /HPF (NONE SEEN)
[2021-12-05] MEDS ORDERED: POTASSIUM CHLORIDE 10 MEQ TAB.PRT.SR PO ONE (10:00)
[2021-12-05] MEDS ORDERED: POTASSIUM CHLORIDE 20 MEQ POWDER PACKET GT ONE (11:45)
[2021-12-05 11:56] VITALS: BP 138/69
--- NOTE | 2021-12-05 12:15 | NUR ---
Wound care consult completed for right foot and left breast, consult ordered by Dr. Garcia.
--- NOTE | 2021-12-05 12:21 | NUR ---
WOUND CARE CONSULT: PT PRESENTS WITH RT FOOT DRY WOUND, RT HIP AND SACRAL SCARRING AND LEFT BREAST DEFORMITY, ALL PRESENT ON ADMISSION. DPM CONSULT CALLED TO DR OAKLEY. RECOMMENDATIONS MADE FOR SKIN PROTECTION. DISCUSSED WITH NURSING STAFF. SHONDA GUPTA NOTED. MD IN AGREEMENT WITH PLAN OF CARE.
[2021-12-05] MEDS ORDERED: REMEDY ESSENTIAL ZINC PASTE 113 GM TOP PRN (12:30)
[2021-12-05] MEDS: NEPRO 1000 ML GT PRN (12:38)
[2021-12-05] MEDS: levETIRAcetam 500 MG/5 ML LIQUID UDC GT SCH ×2 (12:38→20:38)
[2021-12-05 16:23] VITALS: BP 134/71
--- NOTE | 2021-12-05 16:32 | NUR ---
Patient tolerating Nepro GT diet well at 50cc/hr. HOB up, aspiration precautions continued.
[2021-12-05] MEDS ORDERED: DOCUSATE SODIUM 100 MG CAPSULE PO SCH (17:00)
[2021-12-05] MEDS: DOCUSATE SODIUM 100 MG/10 ML LIQUID UDC GT SCH (17:08)
[2021-12-05 20:00] VITALS: BP 149/67
[2021-12-05] MEDS: REMEDY ESSENTIAL ZINC PASTE 113 GM TOP SCH (20:34)
[2021-12-05] MEDS ORDERED: levETIRAcetam 500 MG/5 ML LIQUID UDC GT SCH (21:00)
[2021-12-05] MEDS ORDERED: levETIRAcetam 500 MG TABLET GT SCH (21:00)
--- NOTE | 2021-12-06 01:57 | NUR ---
Awake but non verbal. On continous Nephro feedings @ 50cc/hr via Gtube. HOB up at all times. VSS. Needs attended. Colostomy intact functioning well with brownish soft stool noted. Valente catheter intact draining yellow urine. I & O monitor. Fall precautions maintained. Siderails up for safety. Tolerated meds well. Kept comfortable. Seizures precautions maintained. Will monitor patient. Repositioned for comfort.
[2021-12-06] MEDS: IV NS 1000 ML 1,000 ML IV PRN (03:18)
[2021-12-06 04:00] VITALS: BP 141/64
[2021-12-06] MEDS: LEVOTHYROXINE SODIUM 125 MCG TABLET GT SCH (05:11)
[2021-12-06] MEDS: PANTOPRAZOLE ORAL SUSPENSION 40 MG SUSPDR.PKT GT SCH (05:11)
[2021-12-06 06:34] LABS: HEMATOCRIT 23.9 % (31.2-41.9); MEAN CORPUSCULAR HEMOGLOBIN 25.9 uug (24.7-32.8); MEAN CORPUSCULAR VOLUME 79.2 fL (75.5-95.3); PLATELET COUNT (AUTO) 266 K/uL (179-408)
[2021-12-06 07:15] LABS: CARBON DIOXIDE 27 mmol/L (21-32); CHLORIDE 97 mmol/L (98-107); GLUCOSE 134 mg/dL (74-106); MAGNESIUM 1.7 mg/dL (1.8-2.4); PHOSPHOROUS 3.7 mg/dL (2.5-4.9); POTASSIUM 3.4 mmol/L (3.5-5.1)
[2021-12-06] MEDS: DOCUSATE SODIUM 100 MG/10 ML LIQUID UDC GT SCH ×2 (08:15→16:09)
[2021-12-06] MEDS: FERROUS SULFATE 300 MG/5 ML LIQUID UDC GT SCH (08:15)
[2021-12-06] MEDS: MULTIVITAMINS,THERAPEUTIC TABLET GT SCH (08:15)
[2021-12-06] MEDS: SENNOSIDES 1 TABLET GT SCH (08:15)
[2021-12-06] MEDS: ASCORBIC ACID 500 MG TABLET GT SCH (08:15)
[2021-12-06] MEDS: levETIRAcetam 500 MG/5 ML LIQUID UDC GT SCH ×2 (08:15→20:35)
[2021-12-06] MEDS: REMEDY ESSENTIAL ZINC PASTE 113 GM TOP SCH ×2 (08:16→20:50)
[2021-12-06] MEDS: THERAHONEY GEL 1.5 OZ TUBE TOP SCH (08:17)
[2021-12-06 08:51] LABS: UREA NITROGEN, BLOOD 126 mg/dL (7-18)
[2021-12-06] MEDS ORDERED: COLLAGENASE OINT 30 GM TUBE TOP SCH (09:00)
[2021-12-06] MEDS ORDERED: MULTIVITAMINS 5 ML LIQUID UDC GT SCH (09:00)
[2021-12-06] MEDS ORDERED: PANTOPRAZOLE SODIUM 40 MG TABLET.DR PO SCH (09:00)
--- NOTE | 2021-12-06 09:02 | NUR ---
Critical lab value - BUN: 126. Dr. Hunt notified.
[2021-12-06] MEDS ORDERED: MAGNESIUM OXIDE 400 MG TABLET GT ONE (11:30)
[2021-12-06] MEDS ORDERED: POTASSIUM CHLORIDE 20 MEQ POWDER PACKET GT ONE (11:30)
[2021-12-06 11:57] VITALS: BP 152/75
--- NOTE | 2021-12-06 16:27 | NUR ---
Order for midline placed for patient. PHOTOFLASH POWDER MIXER notified. Price Clerk notified.
[2021-12-06 16:34] VITALS: BP 142/71
--- NOTE | 2021-12-06 17:23 | NUR ---
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 Associated orders placed. Will endorse information to PM nurse.
--- NOTE | 2021-12-06 18:34 | NUR ---
Patient tolerated care well throughout shift with no signs of distress or pain. No signs of fever, or elevated vitals that may be seen as patient distress. Patient to have midline placed. Associated supplies at bedside ready for insertion. Patient tolerated feeding throughout day with appropriate amount of residual. Colostomy bag changed. Wound management provided. Bed in lowest position with call light within reach. Comfort measures provided. Will endorse information to PM nurse.
[2021-12-06] MEDS: MEROPENEM 500 MG in IV NORMAL SALINE 50 ML IV SCH (19:57)
[2021-12-06 20:00] VITALS: BP 132/63
[2021-12-06] MEDS: ACETAMINOPHEN 650 MG/20.3 ML LIQUID UDC GT PRN (20:49)
[2021-12-06] MEDS: MUPIROCIN 2% OINT 22 GM TUBE NS SCH (20:49)
--- NOTE | 2021-12-07 02:51 | NUR ---
Patient asleep but arousable, no sob no chest pain, HOB elevated, tolerate GTF well, colostomy draining well, isidro cath patent, turn and reposition. tx continue on multiple wound. cont abx for uti, afebrile, given tylenol 650 mg via gt for comfort and pain, cont to monitor.
[2021-12-07 04:00] VITALS: BP 130/74
[2021-12-07] MEDS: LEVOTHYROXINE SODIUM 125 MCG TABLET GT SCH (05:16)
[2021-12-07] MEDS: PANTOPRAZOLE ORAL SUSPENSION 40 MG SUSPDR.PKT GT SCH (05:16)
[2021-12-07] MEDS: MULTIVITAMINS,THERAPEUTIC TABLET GT SCH (09:00)
[2021-12-07] MEDS: ASCORBIC ACID 500 MG TABLET GT SCH (09:00)
[2021-12-07] MEDS: MEROPENEM 500 MG in IV NORMAL SALINE 50 ML IV SCH ×2 (09:00→21:16)
[2021-12-07] MEDS: DOCUSATE SODIUM 100 MG/10 ML LIQUID UDC GT SCH ×2 (09:00→16:42)
[2021-12-07] MEDS: FERROUS SULFATE 300 MG/5 ML LIQUID UDC GT SCH (09:00)
[2021-12-07] MEDS: levETIRAcetam 500 MG/5 ML LIQUID UDC GT SCH ×2 (09:00→20:21)
[2021-12-07] MEDS: SENNOSIDES 1 TABLET GT SCH (09:00)
[2021-12-07] MEDS: MUPIROCIN 2% OINT 22 GM TUBE NS SCH ×2 (09:01→20:22)
[2021-12-07] MEDS: REMEDY ESSENTIAL ZINC PASTE 113 GM TOP SCH ×2 (09:01→20:22)
[2021-12-07] MEDS: THERAHONEY GEL 1.5 OZ TUBE TOP SCH (09:02)
[2021-12-07 11:12] VITALS: BP 148/60
[2021-12-07] MEDS: IV NS 1000 ML 1,000 ML IV PRN (12:13)
[2021-12-07 15:03] VITALS: BP 103/82
--- NOTE | 2021-12-07 17:55 | NUR ---
Awake alert and oriented x1 to self, able to respond by nodding of the head, remain calm . Medicated as ordered.Pt currently on ATB therapy IV with Merrem 500 mg for UTI. IV site DEANNA midline #[address] intact no residual with Nepro running at 50 ml /hr tolerated well. Continent with Colostomy in place, Kept clean and dry. Patient also has Valente catheter intact draining yellow urine. All needs attended and met. Air mattress place for skin integrity maintenance Will continue to monitor patient for comfort and safety.
[2021-12-07 20:12] VITALS: BP 149/74
[2021-12-08] MEDS: IV NS 1000 ML 1,000 ML IV PRN ×2 (02:29→20:40)
[2021-12-08 04:02] VITALS: BP 130/80
[2021-12-08] MEDS: LEVOTHYROXINE SODIUM 125 MCG TABLET GT SCH (06:12)
[2021-12-08] MEDS: PANTOPRAZOLE ORAL SUSPENSION 40 MG SUSPDR.PKT GT SCH (06:12)
[2021-12-08] MEDS: MEROPENEM 500 MG in IV NORMAL SALINE 50 ML IV SCH (07:45)
[2021-12-08 07:49] LABS: CARBON DIOXIDE 27 mmol/L (21-32); CHLORIDE 109 mmol/L (98-107); CREATININE 2.6 mg/dL (0.6-1.3); GLUCOSE 100 mg/dL (74-106)
[2021-12-08 07:51] LABS: UREA NITROGEN, BLOOD 102 mg/dL (7-18)
[2021-12-08] MEDS: levETIRAcetam 500 MG/5 ML LIQUID UDC GT SCH ×2 (08:02→20:41)
[2021-12-08] MEDS: DOCUSATE SODIUM 100 MG/10 ML LIQUID UDC GT SCH ×2 (08:02→17:14)
[2021-12-08] MEDS: ASCORBIC ACID 500 MG TABLET GT SCH (08:02)
[2021-12-08] MEDS: MULTIVITAMINS,THERAPEUTIC TABLET GT SCH (08:02)
[2021-12-08] MEDS: FERROUS SULFATE 300 MG/5 ML LIQUID UDC GT SCH (08:02)
[2021-12-08] MEDS: SENNOSIDES 1 TABLET GT SCH (08:02)
[2021-12-08] MEDS: REMEDY ESSENTIAL ZINC PASTE 113 GM TOP SCH ×2 (08:03→20:42)
[2021-12-08] MEDS: MUPIROCIN 2% OINT 22 GM TUBE NS SCH ×2 (08:03→20:41)
[2021-12-08] MEDS: ACETAMINOPHEN 650 MG/20.3 ML LIQUID UDC GT PRN (08:04)
[2021-12-08] MEDS: THERAHONEY GEL 1.5 OZ TUBE TOP SCH (08:04)
[2021-12-08 11:28] VITALS: BP 129/59
[2021-12-08 15:04] VITALS: BP 133/57
--- NOTE | 2021-12-08 17:59 | NUR ---
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 Addendum: 12/09/21 at 1841 by ARJUN CRYSTAL RN RN per Tyler Hunt, hold IV hydration fluid for now. held as ordered. patient was noted with audible wheezing and crackles to the left and right lower lung. Tyler Hunt DNP is aware. with new orders noted and administered.
[2021-12-08 20:00] VITALS: BP 132/51
[2021-12-08] MEDS: PIPERACILLIN/TAZO 2.25 G in IV DEXTROSE 5% 50 ML IV SCH (20:51)
[2021-12-09] MEDS: NEPRO 1000 ML GT PRN (00:38)
[2021-12-09] MEDS: PIPERACILLIN/TAZO 2.25 G in IV DEXTROSE 5% 50 ML IV SCH ×4 (03:09→20:32)
[2021-12-09 04:00] VITALS: BP 145/66
[2021-12-09] MEDS: PANTOPRAZOLE ORAL SUSPENSION 40 MG SUSPDR.PKT GT SCH (06:20)
[2021-12-09] MEDS: LEVOTHYROXINE SODIUM 125 MCG TABLET GT SCH (06:20)
[2021-12-09 07:25] LABS: HEMATOCRIT 21.8 % (31.2-41.9); MEAN CORPUSCULAR HEMOGLOBIN 26.5 uug (24.7-32.8); PLATELET COUNT (AUTO) 205 K/uL (179-408)
[2021-12-09 07:45] LABS: CARBON DIOXIDE 25 mmol/L (21-32); CHLORIDE 109 mmol/L (98-107); CREATININE 2.5 mg/dL (0.6-1.3); GLUCOSE 97 mg/dL (74-106); MAGNESIUM 1.7 mg/dL (1.8-2.4); PHOSPHOROUS 3.8 mg/dL (2.5-4.9); POTASSIUM 3.7 mmol/L (3.5-5.1)
[2021-12-09 07:47] LABS: UREA NITROGEN, BLOOD 94 mg/dL (7-18)
[2021-12-09] MEDS: THERAHONEY GEL 1.5 OZ TUBE TOP SCH (08:02)
[2021-12-09] MEDS: SENNOSIDES 1 TABLET GT SCH (08:02)
[2021-12-09] MEDS: MULTIVITAMINS,THERAPEUTIC TABLET GT SCH (08:02)
[2021-12-09] MEDS: levETIRAcetam 500 MG/5 ML LIQUID UDC GT SCH ×2 (08:02→20:32)
[2021-12-09] MEDS: ASCORBIC ACID 500 MG TABLET GT SCH (08:02)
[2021-12-09] MEDS: DOCUSATE SODIUM 100 MG/10 ML LIQUID UDC GT SCH ×2 (08:02→16:15)
[2021-12-09] MEDS: ACETAMINOPHEN 650 MG/20.3 ML LIQUID UDC GT PRN (08:02)
[2021-12-09] MEDS: FERROUS SULFATE 300 MG/5 ML LIQUID UDC GT SCH (08:02)
[2021-12-09] MEDS: MUPIROCIN 2% OINT 22 GM TUBE NS SCH ×2 (08:03→20:33)
[2021-12-09] MEDS: REMEDY ESSENTIAL ZINC PASTE 113 GM TOP SCH ×2 (08:03→20:34)
[2021-12-09] MEDS ORDERED: MAGNESIUM OXIDE 400 MG TABLET GT ONE (10:30)
[2021-12-09 11:10] VITALS: BP 140/59
[2021-12-09] MEDS ORDERED: BUMETANIDE 1 MG/4 ML VIAL IV ONE (14:00)
[2021-12-09 15:13] VITALS: BP 125/53
[2021-12-09 20:04] VITALS: BP 140/58
--- NOTE | 2021-12-09 20:11 | NUR ---
Patient in bed awake non verbal in no acute distress noted .On Ra.HOB elevated with gtube in place.No residual noted.gtube feeding Running at 50 ml/hr.Tolerated well. Midline patent and intact. Infused Iv ATB. NO a/r noted.No wheezing noted at this time. F/C draining well with clear urine output. Repositioned patient. Continue safety measures . Will continue to monitor.
[2021-12-10] MEDS: PIPERACILLIN/TAZO 2.25 G in IV DEXTROSE 5% 50 ML IV SCH ×3 (03:13→14:21)
[2021-12-10 04:00] VITALS: BP 157/65
[2021-12-10] MEDS: PANTOPRAZOLE ORAL SUSPENSION 40 MG SUSPDR.PKT GT SCH (05:19)
[2021-12-10] MEDS: LEVOTHYROXINE SODIUM 125 MCG TABLET GT SCH (05:19)
[2021-12-10 06:35] LABS: HEMATOCRIT 23.8 % (31.2-41.9); MEAN CORPUSCULAR HEMOGLOBIN 26.4 uug (24.7-32.8); MEAN CORPUSCULAR VOLUME 80.7 fL (75.5-95.3); PLATELET COUNT (AUTO) 244 K/uL (179-408)
[2021-12-10 06:49] LABS: CARBON DIOXIDE 24 mmol/L (21-32); CHLORIDE 106 mmol/L (98-107); CREATININE 2.8 mg/dL (0.6-1.3); GLUCOSE 132 mg/dL (74-106); MAGNESIUM 1.6 mg/dL (1.8-2.4); POTASSIUM 3.6 mmol/L (3.5-5.1)
[2021-12-10 06:55] LABS: UREA NITROGEN, BLOOD 84 mg/dL (7-18)
[2021-12-10] MEDS: levETIRAcetam 500 MG/5 ML LIQUID UDC GT SCH (08:02)
[2021-12-10] MEDS: DOCUSATE SODIUM 100 MG/10 ML LIQUID UDC GT SCH (08:02)
[2021-12-10] MEDS: MULTIVITAMINS,THERAPEUTIC TABLET GT SCH (08:02)
[2021-12-10] MEDS: SENNOSIDES 1 TABLET GT SCH (08:02)
[2021-12-10] MEDS: FERROUS SULFATE 300 MG/5 ML LIQUID UDC GT SCH (08:02)
[2021-12-10] MEDS: ASCORBIC ACID 500 MG TABLET GT SCH (08:02)
[2021-12-10] MEDS: THERAHONEY GEL 1.5 OZ TUBE TOP SCH (08:44)
[2021-12-10] MEDS: REMEDY ESSENTIAL ZINC PASTE 113 GM TOP SCH (08:44)
[2021-12-10] MEDS: MUPIROCIN 2% OINT 22 GM TUBE NS SCH (08:44)
[2021-12-10] MEDS ORDERED: MAGNESIUM SULFATE/D5W 100 ML IV SCH (10:45)
[2021-12-10 11:19] VITALS: BP 149/62
[2021-12-10 12:18] LABS: *BILIRUBIN,URIN NEGATIVE (NEGATIVE); *CLARITY,URINE CLEAR (CLEAR); *COLOR,URINE YELLOW (YELLOW); *KETONES,URINE NEGATIVE (NEGATIVE); *UROBILINOGEN,URINE 0.2 E.U./dl (NORMAL); LEUKOCYTE ESTERASE ,URINE TRACE (NEGATIVE); NITRITE, URINE NEGATIVE (NEGATIVE); UGLUCOSE NEGATIVE (NEGATIVE)
[2021-12-10 12:22] LABS: *BLOOD, URINE TRACE (NEGATIVE)
[2021-12-10 12:29] LABS: *URINE TOTAL PROTEIN RANDOM 50.8 mg/dL (<150/24HR)
[2021-12-10 13:24] LABS: MUCUS,URINE FEW /LPF (0-FEW)
[2021-12-10 13:25] LABS: SQUAMOUS EPITHELIAL CELL,UR FEW /HPF (NONE SEEN)
[2021-12-10 13:26] LABS: BACTERIA,URINE NONE SEEN /HPF (NONE SEEN)
[2021-12-10 15:00] VITALS: BP 148/62
[2021-12-10] MEDS ORDERED: PIPE2.257 IV (16:13)
[2021-12-10] MEDS ORDERED: MUPI22OI2 NS (16:13)
--- NOTE | 2021-12-10 16:56 | NUR ---
dc orders received noted and carried out,dc instruction and rn report given to the long term.pt left the facility via ambulances in stable condition with midline for iv antibiotic continue
== END 2021-12-10 17:20 | DRG 682 ==
LOC: ER 01:53 → MEDSURG3 07:30
PROVIDERS: ADMIT Nurse Practitioner Acute Care; ATTEND Nurse Practitioner Acute Care
PROC: 05H533Z Insertion of Infusion Device into Right Subclavian Vein, Percutaneous Approach (ICD-10-PCS; principal; 2021-12-06)
PROC: B546ZZA Ultrasonography of Right Subclavian Vein, Guidance (ICD-10-PCS; 2021-12-06)
DX: N17.0 Acute kidney failure with tubular necrosis (principal); K85.90 Acute pancreatitis without necrosis or infection, unspecified; N39.0 Urinary tract infection, site not specified; E87.0 Hyperosmolality and hypernatremia; L97.518 Non-pressure chronic ulcer of other part of right foot with other specified severity; Z16.19 Resistance to other specified beta lactam antibiotics; I12.9 Hypertensive chronic kidney disease with stage 1 through stage 4 chronic kidney disease, or unspecified chronic kidney disease; C50.912 Malignant neoplasm of unspecified site of left female breast; B96.5 Pseudomonas (aeruginosa) (mallei) (pseudomallei) as the cause of diseases classified elsewhere; D64.9 Anemia, unspecified; E03.9 Hypothyroidism, unspecified; F03.90 Unspecified dementia, unspecified severity, without behavioral disturbance, psychotic disturbance, mood disturbance, and anxiety; Z66 Do not resuscitate; Z93.1 Gastrostomy status; Z93.3 Colostomy status; K21.9 Gastro-esophageal reflux disease without esophagitis; E88.09 Other disorders of plasma-protein metabolism, not elsewhere classified; Z74.01 Bed confinement status; Z79.899 Other long term (current) drug therapy; I73.9 Peripheral vascular disease, unspecified; N18.2 Chronic kidney disease, stage 2 (mild); Z22.322 Carrier or suspected carrier of Methicillin resistant Staphylococcus aureus; Z20.822 Contact with and (suspected) exposure to COVID-19; R13.10 Dysphagia, unspecified; Z79.890 Hormone replacement therapy; F25.9 Schizoaffective disorder, unspecified; F31.9 Bipolar disorder, unspecified
CPT/HCPCS: 36415; 71045; 76770; 83690; 83735; 84100; 84156; 84300; 84484; 85025; 85730; 87077; 87086; 93005; A4663; A6209; A6213; G0378; J2185; J2543; J3475; J3490; J7040

== ENCOUNTER 2022-01-01 13:29 | Emergency (ER) | payer MEDICARE, OTHER ==
[~2022-01-01] VITALS: Ht 165.1 cm; Wt 63.5 kg
[~2022-01-01 13:29] MED LIST changes: -ASCO500T21 GT; -DOCU50LI GT; +FERR220S6 GT; -FERR300L GT; -FERR325T28 GT; +LEVE500S9 GT; -LEVE500T20 GT; +LEVO125T8 GT; -LEVO125T8 PO; -LEVO200T9 GT; +MUPI22OI2 NS; -NYST5ORA PO; -Nepro GT; -PANT40SU2 GT; +PANT40TA49 GT; +PIPE2.257 IV; -RXGEN XX; -[UNRECOGNIZED DRUG - CODE] IV
[2022-01-01] MEDS ORDERED: DIATR MEGLU/DIATRIZOATE SODIUM 30 ML BOTTLE ONE (13:36)
--- NOTE | 2022-01-01 13:43 | NUR ---
Xray at the bedside.
--- NOTE | 2022-01-01 13:43 | NUR ---
Dr Bryant inserted a new GT 22 faroese. Pt tolorated well.
[2022-01-01] MEDS ORDERED: DIATR MEGLU/DIATRIZOATE SODIUM 30 ML BOTTLE GT ONE (13:45)
[2022-01-01] MEDS ORDERED: ALBUTEROL SULFATE IH (13:56)
--- NOTE | 2022-01-01 14:04 | NUR ---
Abdominal binder placed on abdomen for safety.
--- NOTE | 2022-01-01 14:14 | NUR ---
Patient discharged in stable condition. written after care instructions given. Discharge paperwork given to Transfering tree tapping laborer.
[2022-01-01 14:40] VITALS: BP 130/66
== END 2022-01-01 14:41 ==
LOC: ER 13:29
DX: Z43.1 Encounter for attention to gastrostomy (principal); R13.10 Dysphagia, unspecified; Z93.3 Colostomy status; F25.9 Schizoaffective disorder, unspecified; F31.9 Bipolar disorder, unspecified; G40.909 Epilepsy, unspecified, not intractable, without status epilepticus; F03.90 Unspecified dementia, unspecified severity, without behavioral disturbance, psychotic disturbance, mood disturbance, and anxiety; Z85.3 Personal history of malignant neoplasm of breast; I73.9 Peripheral vascular disease, unspecified; I12.9 Hypertensive chronic kidney disease with stage 1 through stage 4 chronic kidney disease, or unspecified chronic kidney disease; N18.9 Chronic kidney disease, unspecified; Z74.01 Bed confinement status
CPT/HCPCS: 74018; A4663; Q9963

== ENCOUNTER 2022-02-08 14:10 | Inpatient (IN) | payer MEDICARE, OTHER ==
[~2022-02-08] VITALS: Ht 165.1 cm; Wt 63.5 kg
[~2022-02-08 14:10] MED LIST changes: +ALBUTEROL SULFATE IH; -MUPI22OI2 NS; -PIPE2.257 IV
[2022-02-08 15:03] LABS: HEMATOCRIT 23.5 % (31.2-41.9); MEAN CORPUSCULAR HEMOGLOBIN 26.2 uug (24.7-32.8); MEAN CORPUSCULAR VOLUME 80.9 fL (75.5-95.3); PLATELET COUNT (AUTO) 263 K/uL (179-408)
[2022-02-08] MEDS ORDERED: ALBU2.5V38 IH (15:03)
[2022-02-08 15:27] LABS: ALANINE AMINOTRANSFERASE 17 U/L (14-59); ALKALINE PHOSPHATASE 106 U/L (50-136); ASPARTATE AMINOTRANSFERASE 49 U/L (15-37); BILIRUBIN,TOTAL 0.3 mg/dL (0.2-1.0); CARBON DIOXIDE 25 mmol/L (21-32); CHLORIDE 96 mmol/L (98-107); CREATININE 1.5 mg/dL (0.6-1.3); GLUCOSE 105 mg/dL (74-106); POTASSIUM 3.9 mmol/L (3.5-5.1); TOTAL PROTEIN, SERUM 8.4 g/dL (6.4-8.2); UREA NITROGEN, BLOOD 70 mg/dL (7-18)
[2022-02-08] MEDS ORDERED: levoFLOXacin 750MG/D5W 150 ML IV ONE (15:56)
[2022-02-08] MEDS ORDERED: DEXAMETHASONE SOD PHOSPHATE 4 MG INJ ONE (15:56)
[2022-02-08] MEDS ORDERED: DEXAMETHASONE SOD PHOSPHATE 4 MG INJ IV ONE (16:00)
[2022-02-08] MEDS ORDERED: levoFLOXacin 750 MG/D5W 150 ML PIGGYBACK IV ONE (16:00)
[2022-02-08 16:28] VITALS: BP 106/96
[2022-02-08] MEDS ORDERED: ZINC OXIDE OINT 30 GM TUBE TOP PRN (18:00)
[2022-02-08] MEDS ORDERED: MAGNESIUM HYDROXIDE 30 ML LIQUID UDC GT PRN (18:45)
[2022-02-08] MEDS ORDERED: ACETAMINOPHEN 650 MG/20.3 ML LIQUID UDC GT PRN (18:45)
[2022-02-08 20:12] VITALS: BP 109/62
[2022-02-08] MEDS: levETIRAcetam 500 MG/5 ML LIQUID UDC GT SCH (21:05)
[2022-02-08 23:38] LABS: *OCCULT BLOOD STOOL NEGATIVE (NEGATIVE)
[2022-02-09] VITALS (11 sets, daily range): BP systolic 103–128; BP diastolic 44–83
[2022-02-09] MEDS ORDERED: NEPRO 1000 ML GT PRN (04:00)
[2022-02-09 06:56] LABS: HEMATOCRIT 22.5 % (31.2-41.9); MEAN CORPUSCULAR HEMOGLOBIN 26.5 uug (24.7-32.8); MEAN CORPUSCULAR VOLUME 81.3 fL (75.5-95.3); PLATELET COUNT (AUTO) 258 K/uL (179-408)
[2022-02-09 07:28] LABS: THYROID STIMULATING HORMONE 22.103 mIU/mL (0.358-3.740)
[2022-02-09 07:30] LABS: ALANINE AMINOTRANSFERASE 11 U/L (14-59); ALKALINE PHOSPHATASE 79 U/L (50-136); ASPARTATE AMINOTRANSFERASE 42 U/L (15-37); BILIRUBIN,TOTAL 0.3 mg/dL (0.2-1.0); CARBON DIOXIDE 25 mmol/L (21-32); CHLORIDE 99 mmol/L (98-107); CHOLESTEROL 157 mg/dL (<200); CREATININE 1.6 mg/dL (0.6-1.3); GLUCOSE 90 mg/dL (74-106); HDL CHOLESTEROL 49 mg/dL (40-60); MAGNESIUM 1.8 mg/dL (1.8-2.4); PHOSPHOROUS 3.2 mg/dL (2.5-4.9); TRIGLYCERIDES 194 MG/DL (30-150); UREA NITROGEN, BLOOD 66 mg/dL (7-18)
[2022-02-09 07:33] LABS: IRON, SERUM 35 ug/dL (50-175)
[2022-02-09] MEDS ORDERED: PANTOPRAZOLE ORAL SUSPENSION 40 MG SUSPDR.PKT GT SCH (09:00)
[2022-02-09] MEDS ORDERED: LEVOTHYROXINE SODIUM 125 MCG TABLET GT SCH (09:00)
[2022-02-09] MEDS: DOCUSATE SODIUM 100 MG/10 ML LIQUID UDC GT SCH ×2 (09:21→17:05)
[2022-02-09] MEDS: levETIRAcetam 500 MG/5 ML LIQUID UDC GT SCH ×2 (09:21→20:04)
[2022-02-09] MEDS: FERROUS SULFATE 300 MG/5 ML LIQUID UDC GT SCH (09:21)
[2022-02-09] MEDS: PANTOPRAZOLE SODIUM 40 MG VIAL IV SCH (09:21)
[2022-02-09] MEDS: MULTIVITAMINS,THERAPEUTIC TABLET GT SCH (09:22)
[2022-02-09] MEDS ORDERED: ENOXAPARIN SODIUM 30 MG/0.3 ML DISP.SYRIN SUBCUT SCH (09:22)
[2022-02-09] MEDS: SENNOSIDES 1 TABLET GT SCH (09:22)
[2022-02-09] MEDS: HYDROCODONE/APAP 5-325MG TABLET GT PRN (19:44)
[2022-02-10 00:36] VITALS: BP 121/65
[2022-02-10 04:55] VITALS: BP 133/56
[2022-02-10 06:45] LABS: HEMATOCRIT 26.8 % (31.2-41.9); MEAN CORPUSCULAR VOLUME 80.1 fL (75.5-95.3); PLATELET COUNT (AUTO) 252 K/uL (179-408)
[2022-02-10 06:56] LABS: CARBON DIOXIDE 27 mmol/L (21-32); CHLORIDE 103 mmol/L (98-107); CREATININE 1.7 mg/dL (0.6-1.3); GLUCOSE 110 mg/dL (74-106); MAGNESIUM 1.9 mg/dL (1.8-2.4); PHOSPHOROUS 3.1 mg/dL (2.5-4.9); POTASSIUM 3.8 mmol/L (3.5-5.1); UREA NITROGEN, BLOOD 64 mg/dL (7-18)
[2022-02-10] MEDS: SENNOSIDES 1 TABLET GT SCH (09:00)
[2022-02-10] MEDS: DOCUSATE SODIUM 100 MG/10 ML LIQUID UDC GT SCH ×2 (09:00→16:45)
[2022-02-10] MEDS: MULTIVITAMINS,THERAPEUTIC TABLET GT SCH (10:20)
[2022-02-10] MEDS: levETIRAcetam 500 MG/5 ML LIQUID UDC GT SCH ×2 (10:21→21:05)
[2022-02-10] MEDS: FERROUS SULFATE 300 MG/5 ML LIQUID UDC GT SCH (10:21)
[2022-02-10] MEDS: PANTOPRAZOLE SODIUM 40 MG VIAL IV SCH (10:22)
[2022-02-10] MEDS: NEPRO 1000 ML GT PRN (11:55)
[2022-02-10 12:00] VITALS: BP 131/85
[2022-02-10] MEDS ORDERED: levoFLOXacin 750MG/D5W 750 MG in PREMIXED 1 EACH IV SCH (16:00)
[2022-02-10 20:52] VITALS: BP 137/56
[2022-02-10] MEDS: HYDROCODONE/APAP 5-325MG TABLET GT PRN (21:05)
[2022-02-11 00:43] VITALS: BP 132/52
[2022-02-11 04:48] VITALS: BP 137/76
[2022-02-11] MEDS: PANTOPRAZOLE ORAL SUSPENSION 40 MG SUSPDR.PKT GT SCH (06:23)
[2022-02-11] MEDS: LEVOTHYROXINE SODIUM 150 MCG TABLET GT SCH (06:23)
[2022-02-11 06:51] LABS: HEMATOCRIT 28.4 % (31.2-41.9); PLATELET COUNT (AUTO) 261 K/uL (179-408)
[2022-02-11 07:13] LABS: ALANINE AMINOTRANSFERASE 13 U/L (14-59); ALKALINE PHOSPHATASE 99 U/L (50-136); ASPARTATE AMINOTRANSFERASE 34 U/L (15-37); BILIRUBIN,TOTAL 0.2 mg/dL (0.2-1.0); CARBON DIOXIDE 25 mmol/L (21-32); CHLORIDE 103 mmol/L (98-107); CREATININE 1.6 mg/dL (0.6-1.3); GLUCOSE 130 mg/dL (74-106); MAGNESIUM 1.9 mg/dL (1.8-2.4); PHOSPHOROUS 2.8 mg/dL (2.5-4.9); POTASSIUM 4.3 mmol/L (3.5-5.1); TOTAL PROTEIN, SERUM 7.9 g/dL (6.4-8.2); UREA NITROGEN, BLOOD 58 mg/dL (7-18)
[2022-02-11] MEDS: MULTIVITAMINS,THERAPEUTIC TABLET GT SCH (09:57)
[2022-02-11] MEDS: levETIRAcetam 500 MG/5 ML LIQUID UDC GT SCH ×2 (09:57→21:23)
[2022-02-11] MEDS: DOCUSATE SODIUM 100 MG/10 ML LIQUID UDC GT SCH ×2 (09:57→16:25)
[2022-02-11] MEDS: SENNOSIDES 1 TABLET GT SCH (09:57)
[2022-02-11] MEDS: FERROUS SULFATE 300 MG/5 ML LIQUID UDC GT SCH (09:57)
[2022-02-11] MEDS: NEPRO 1000 ML GT PRN (09:58)
[2022-02-11 11:33] VITALS: BP 125/47
[2022-02-11 12:03] VITALS: BP 129/83
[2022-02-11 16:00] VITALS: BP 107/46
[2022-02-11] MEDS: HYDROCODONE/APAP 5-325MG TABLET GT PRN (21:25)
[2022-02-11 21:47] VITALS: BP 115/55
[2022-02-12 05:00] VITALS: BP 113/45
[2022-02-12] MEDS: LEVOTHYROXINE SODIUM 150 MCG TABLET GT SCH (06:07)
[2022-02-12] MEDS: PANTOPRAZOLE ORAL SUSPENSION 40 MG SUSPDR.PKT GT SCH (06:07)
[2022-02-12] MEDS: MULTIVITAMINS,THERAPEUTIC TABLET GT SCH (09:45)
[2022-02-12] MEDS: FERROUS SULFATE 300 MG/5 ML LIQUID UDC GT SCH (09:45)
[2022-02-12] MEDS: SENNOSIDES 1 TABLET GT SCH (09:45)
[2022-02-12] MEDS: levETIRAcetam 500 MG/5 ML LIQUID UDC GT SCH (09:45)
[2022-02-12] MEDS: DOCUSATE SODIUM 100 MG/10 ML LIQUID UDC GT SCH (09:45)
[2022-02-12 09:48] VITALS: BP 131/47
[2022-02-12] MEDS: NEPRO 1000 ML GT PRN (11:23)
[2022-02-12] MEDS ORDERED: LEVO150T GT (13:11)
== END 2022-02-12 15:25 | DRG 177 ==
LOC: ER 14:10 → TELE3 15:47 → MEDSURG3 02-11 18:56
PROVIDERS: ADMIT Internal Medicine; ATTEND Internal Medicine
PROC: 30233N1 Transfusion of Nonautologous Red Blood Cells into Peripheral Vein, Percutaneous Approach (ICD-10-PCS; principal; 2022-02-09)
DX: U07.1 COVID-19 (principal); E43 Unspecified severe protein-calorie malnutrition; G93.41 Metabolic encephalopathy; J12.82 Pneumonia due to coronavirus disease 2019; J96.01 Acute respiratory failure with hypoxia; N17.0 Acute kidney failure with tubular necrosis; D68.59 Other primary thrombophilia; C78.01 Secondary malignant neoplasm of right lung; C79.89 Secondary malignant neoplasm of other specified sites; D62 Acute posthemorrhagic anemia; K92.2 Gastrointestinal hemorrhage, unspecified; Z66 Do not resuscitate; I12.9 Hypertensive chronic kidney disease with stage 1 through stage 4 chronic kidney disease, or unspecified chronic kidney disease; N18.9 Chronic kidney disease, unspecified; G40.909 Epilepsy, unspecified, not intractable, without status epilepticus; F03.90 Unspecified dementia, unspecified severity, without behavioral disturbance, psychotic disturbance, mood disturbance, and anxiety; Z74.09 Other reduced mobility; E03.9 Hypothyroidism, unspecified; Z79.890 Hormone replacement therapy; F25.0 Schizoaffective disorder, bipolar type; K21.9 Gastro-esophageal reflux disease without esophagitis; R13.10 Dysphagia, unspecified; Z93.1 Gastrostomy status; Z79.899 Other long term (current) drug therapy; Z86.718 Personal history of other venous thrombosis and embolism; Z95.828 Presence of other vascular implants and grafts; I73.9 Peripheral vascular disease, unspecified; D63.1 Anemia in chronic kidney disease; C50.912 Malignant neoplasm of unspecified site of left female breast
CPT/HCPCS: 36415; 71045; 71250; 82378; 83550; 83605; 83735; 84100; 84443; 84484; 85025; 86850; 86900; 86901; 86920; 87040; 87400; 93005; A4663; A6209; A9150; C9113; G0378; J1100; J1650; J1956; J7040; P9016